=== PATIENT | female | born 2005 | race Caucasian/White ===

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

== ENCOUNTER → 2023-05-23 | Outpatient (CLI) | payer OTHER ==
[~2023-05-23] MED LIST changes: +INDERAL 10MG10 MG PO; +METRONIDAZOLE500 M1 PO; +VIBRAMYCIN HYC100 MG PO
[2023-05-23 19:04] LABS: BASO # 0.04 K/mm3 (0.02-0.10); EOS # 0.09 K/mm3 (0.04-0.40); EOS % 0.9 % (0.1-4.0); HEMATOCRIT 42.6 % (35.0-45.0); HEMOGLOBIN 14.2 g/dL (12.0-15.0); LYMPH# 3.31 K/mm3 (1.20-3.40); MEAN CELL VOLUME 93 fl (78-95); MEAN CORPUSCULAR HEMOGLOBIN 31 pg (26-32); MEAN CORPUSCULAR HGB CONC 33 g/dL (33-37); MEAN PLATELET VOLUME 11.6 fl (7.4-10.4); MONO # 0.76 K/mm3 (0.10-0.60); NEU # 6.27 K/mm3 (1.40-6.50); PLATELET COUNT 203 K/mm3 (130-400); RED BLOOD COUNT 4.59 M/mm3 (4.10-5.30); RED CELL DISTRIBUTION WIDTH 12.8 % (11.5-14.5); WHITE BLOOD COUNT 10.5 K/mm3 (4.8-10.8)
[2023-05-23 19:09] LABS: CALCIUM 9.4 mg/dL (8.3-10.5)
== END ==
LOC: LAB 18:37
PROVIDERS: Nurse Practitioner Family
DX: R10.31 Right lower quadrant pain (principal)

== ENCOUNTER 2023-05-24 16:32 | Emergency (ER) | payer OTHER ==
[~2023-05-24 16:32] MED LIST changes: -INDERAL 10MG10 MG PO; -METRONIDAZOLE500 M1 PO; -VIBRAMYCIN HYC100 MG PO
[2023-05-24] MEDS ORDERED: INDERAL 10MG10 MG PO (16:55)
[2023-05-24 17:14] LABS: BASO # 0.04 K/mm3 (0.02-0.10); EOS # 0.09 K/mm3 (0.04-0.40); EOS % 0.9 % (0.1-4.0); HEMATOCRIT 42.2 % (35.0-45.0); HEMOGLOBIN 14.2 g/dL (12.0-15.0); LYMPH# 3.32 K/mm3 (1.20-3.40); MEAN CELL VOLUME 93 fl (78-95); MEAN CORPUSCULAR HEMOGLOBIN 31 pg (26-32); MEAN CORPUSCULAR HGB CONC 34 g/dL (33-37); MEAN PLATELET VOLUME 11.5 fl (7.4-10.4); MONO # 0.69 K/mm3 (0.10-0.60); NEU # 6.43 K/mm3 (1.40-6.50); PLATELET COUNT 200 K/mm3 (130-400); RED BLOOD COUNT 4.55 M/mm3 (4.10-5.30); RED CELL DISTRIBUTION WIDTH 12.7 % (11.5-14.5); WHITE BLOOD COUNT 10.6 K/mm3 (4.8-10.8)
[2023-05-24 17:16] LABS: ALBUMIN 4.5 g/dL (3.5-5.0)
[2023-05-24 17:17] LABS: CALCIUM 9.4 mg/dL (8.3-10.5)
[2023-05-24 17:18] LABS: TOTAL PROTEIN 7.5 g/dL (6.4-8.3)
[2023-05-24 17:20] LABS: TOTAL BILIRUBIN 0.4 mg/dL (0.2-1.2)
[2023-05-24 18:47] LABS: URINE WBC 0 /hpf (0-3)
[2023-05-24 18:51] LABS: URINE APPEARANCE CLEAR (CLEAR); URINE COLOR YELLOW (YELLOW)
[2023-05-24 18:53] LABS: PH-URINE 6.5 (5.0 - 8.0); URINE BILIRUBIN NEGATIVE (NEGATIVE); URINE GLUCOSE NEGATIVE (NEGATIVE); URINE KETONE TRACE (NEGATIVE); URINE PROTEIN(semi-quant) NEGATIVE (NEGATIVE)
[2023-05-24 18:54] LABS: URINE BLOOD NEGATIVE (NEGATIVE); URINE LEUKOCYTE ESTERASE NEGATIVE (NEGATIVE); URINE NITRATE NEGATIVE (NEGATIVE)
[2023-05-24] MEDS ORDERED: METRONIDAZOLE500 M1 PO (20:10)
[2023-05-24] MEDS ORDERED: VIBRAMYCIN HYC100 MG PO (20:10)
[2023-05-24 20:30] VITALS: BP 118/86
== END 2023-05-24 20:30 | disposition home or self-care (01) ==
LOC: ED 16:32
PROVIDERS: Family Medicine
DX: R10.2 Pelvic and perineal pain (principal); Z88.1 Allergy status to other antibiotic agents
CPT/HCPCS: J0696; Q9967

== ENCOUNTER → 2023-05-29 | Outpatient (CLI) | payer OTHER ==
[~2023-05-29] MED LIST changes: +INDERAL 10MG10 MG PO; +METRONIDAZOLE500 M1 PO; +VIBRAMYCIN HYC100 MG PO
== END ==
LOC: RAD 07:30
DX: R10.2 Pelvic and perineal pain (principal); Z97.5 Presence of (intrauterine) contraceptive device

== ENCOUNTER → 2023-06-02 | Outpatient (CLI) | payer OTHER ==
[2023-06-02 10:18] LABS: CLUE CELLS NOT OBSERVED (Not Observd)
== END ==
LOC: LAB 09:36
PROVIDERS: Nurse Practitioner
DX: N73.9 Female pelvic inflammatory disease, unspecified (principal)
CPT/HCPCS: Q0111

== ENCOUNTER → 2023-06-12 | Outpatient (CLI) | payer OTHER ==
[2023-06-12 12:57] LABS: BASO # 0.04 K/mm3 (0.02-0.10); EOS % 1.4 % (0.1-4.0); HEMATOCRIT 43.6 % (35.0-45.0); HEMOGLOBIN 14.3 g/dL (12.0-15.0); LYMPH# 2.84 K/mm3 (1.20-3.40); MEAN CELL VOLUME 94 fl (78-95); MEAN CORPUSCULAR HEMOGLOBIN 31 pg (26-32); MEAN CORPUSCULAR HGB CONC 33 g/dL (33-37); MEAN PLATELET VOLUME 11.3 fl (7.4-10.4); MONO # 0.46 K/mm3 (0.10-0.60); NEU # 3.57 K/mm3 (1.40-6.50); PLATELET COUNT 217 K/mm3 (130-400); RED BLOOD COUNT 4.63 M/mm3 (4.10-5.30); RED CELL DISTRIBUTION WIDTH 12.5 % (11.5-14.5)
[2023-06-12 13:03] LABS: ALBUMIN 4.6 g/dL (3.5-5.0)
[2023-06-12 13:04] LABS: CALCIUM 9.8 mg/dL (8.3-10.5)
[2023-06-12 13:06] LABS: TOTAL PROTEIN 7.4 g/dL (6.4-8.3)
[2023-06-12 13:07] LABS: TOTAL BILIRUBIN 0.4 mg/dL (0.2-1.2)
== END ==
LOC: LAB 12:45
PROVIDERS: Nurse Practitioner
DX: G47.00 Insomnia, unspecified (principal); R53.83 Other fatigue; R10.9 Unspecified abdominal pain

== ENCOUNTER → 2024-04-09 | Outpatient (CLI) | payer OTHER ==
[2024-04-12 11:37] LABS: BASO # 0.02 K/mm3 (0.02-0.10); HEMATOCRIT 45.8 % (35.0-45.0); HEMOGLOBIN 15.2 g/dL (12.0-15.0); MEAN CELL VOLUME 92 fl (78-95); MEAN CORPUSCULAR HEMOGLOBIN 31 pg (26-32); MEAN CORPUSCULAR HGB CONC 33 g/dL (33-37); MEAN PLATELET VOLUME 11.5 fl (7.4-10.4); NEU # 5.07 K/mm3 (1.40-6.50); PLATELET COUNT 212 K/mm3 (130-400); RED BLOOD COUNT 4.96 M/mm3 (4.10-5.30); RED CELL DISTRIBUTION WIDTH 12.5 % (11.5-14.5); WHITE BLOOD COUNT 9.7 K/mm3 (4.8-10.8)
== END ==
LOC: LAB 13:30
PROVIDERS: Nurse Practitioner
DX: R04.2 Hemoptysis (principal)

== ENCOUNTER → 2024-04-13 | Outpatient (CLI) | payer OTHER ==
[~2024-04-13] MED LIST changes: +Iohexol 300 - 100 ML VIAL IV ONE
== END ==
LOC: RAD 09:49
DX: M51.34 Other intervertebral disc degeneration, thoracic region (principal); M95.4 Acquired deformity of chest and rib
CPT/HCPCS: Q9967